=== PATIENT | female | born 1980 | race Two or more races ===

== ENCOUNTER 2019-05-13 10:32 | Inpatient (IN) | payer OTHER ==
[~2019-05-13] VITALS: Ht 162.6 cm; Wt 70.3 kg
== END 2019-05-20 08:57 | disposition home or self-care (01) | DRG 735 ==
LOC: ADM 05-14 07:00 → EDSTATUS 05-14 07:00 → OB/GYN 05-18 06:53 → O/R 05-18 06:53 → RECOVERY 05-18 07:00 → OB/GYN 05-18 17:48
PROVIDERS: ADMIT Obstetrics & Gynecology Gynecologic Oncology
PROC: 07TC0ZZ Resection of Pelvis Lymphatic, Open Approach (ICD-10-PCS; 2019-05-18)
PROC: 0UT90ZZ Resection of Uterus, Open Approach (ICD-10-PCS; principal; 2019-05-18 17:30)
DX: D06.1 Carcinoma in situ of exocervix (principal)